=== PATIENT | female | born 1940 | race Caucasian/White ===

== ENCOUNTER 2019-03-10 10:22 | Day surgery (SDC) | payer MEDICARE ==
[2019-03-10] VITALS (9 sets, daily range): BP systolic 100–165; BP diastolic 61–86
[~2019-03-10] VITALS: Ht 157.5 cm; Wt 79.7 kg
[2019-03-10] MEDS ORDERED: normal saline 1,000 ML IV SCH (10:45)
[2019-03-10] MEDS ORDERED: diphenhydrAMINE 25mg capsule PO PRN (10:45)
[2019-03-10] MEDS ORDERED: NITR0.4T51 SL (10:46)
[2019-03-10] MEDS ORDERED: ARIP5TAB4 PO (10:46)
[2019-03-10] MEDS ORDERED: ASPI81TA52 PO (10:46)
[2019-03-10] MEDS ORDERED: ZOL50T PO (10:46)
[2019-03-10] MEDS ORDERED: LISI1TAB11 PO (10:46)
[2019-03-10 11:22] LABS: BASOPHILS # (AUTO) 0.1 X10'3 (0-0.2); BASOPHILS % (AUTO) 1.5 % (0-1); EOSINOPHILS # (AUTO) 0.1 X10'3 (0-0.9); EOSINOPHILS % (AUTO) 2.7 % (0-6); HEMATOCRIT 43.9 % (35.0-45.0); HEMOGLOBIN 14.8 g/dl (12.0-16.0); LYMPHOCYTES # (AUTO) 1.3 X10'3 (1.1-4.8); LYMPHOCYTES % (AUTO) 25.9 % (21-51); MEAN CORPUSCULAR HEMOGLOBIN 29.7 PG (27.0-31.0); MEAN CORPUSCULAR HGB CONC 33.7 g/dL (33.0-36.5); MEAN CORPUSCULAR VOLUME 88.2 FL (78-98); MONOCYTES # (AUTO) 0.4 X10'3 (0-0.9); MONOCYTES % (AUTO) 8.5 % (2-12); NEUTROPHILS % (AUTO) 61.4 % (42-75); PLATELET COUNT 243 X10'3 (140-440); RED BLOOD COUNT 4.98 X10'6 (4.20-5.60); RED CELL DISTRIBUTION WIDTH 13.9 % (11.5-14.5); WHITE BLOOD COUNT 4.9 X10'3 (4.5-11.0)
[2019-03-10 11:32] LABS: ALBUMIN 3.8 G/DL (3.4-5.0); ANION GAP 7 (8-16); BLOOD UREA NITROGEN 18 MG/DL (7-18); BUN/CREATININE RATIO 21.4 (6.6-38.0); CALCIUM 9.1 MG/DL (8.5-10.1); CHLORIDE 107 MMOL/L (99-107); CREATININE 0.84 MG/DL (0.40-0.90); GLUCOSE 81 MG/DL (70-104); MAGNESIUM 2.1 MG/DL (1.5-2.4); POTASSIUM 4.1 MMOL/L (3.5-5.1); SODIUM 141 MMOL/L (135-145); TOTAL CARBON DIOXIDE 27.2 MMOL/L (24-32); eGFR 65 ML/MIN
[2019-03-10] MEDS ORDERED: fentaNYL/PF 50MCG/1 ML 2ML syringe ONE (12:42)
[2019-03-10] MEDS ORDERED: midazolam 2 mg/2 ml injection ONE ×2 (12:42→13:08)
[2019-03-10] MEDS ORDERED: LIDOcaine 1% (10mg/ml)w/preservative injection 20ml MDV ONE (12:42)
[2019-03-10] MEDS ORDERED: iohexol 350 MG/ML 50ML vial IV ONE (12:43)
[2019-03-10] MEDS ORDERED: iohexol 350MG/ML 100ml bottle IV ONE ×3 (12:43→13:38)
[2019-03-10] MEDS ORDERED: heparin 1,000unit/ml 10ml vial 10 ML ONE (13:25)
[2019-03-10] MEDS ORDERED: nitroGLYCERIN-Tridil 50MG/D5W 250 ML IV ONE (13:33)
[2019-03-10] MEDS ORDERED: clopidogrel 300mg tablet ONE (13:50)
[2019-03-10] MEDS ORDERED: normal saline 1000ml 1,000 ML IV SCH (14:45)
[2019-03-10] MEDS ORDERED: ketorolac tromethamine 15mg/ml inj. IV ONE (15:15)
[2019-03-10] MEDS ORDERED: morphine 4 MG/ML inj SYRINge IV ONE (15:15)
== END 2019-03-10 17:30 | disposition home or self-care (01) ==
LOC: SSTAY O 10:22
PROVIDERS: ATTEND Internal Medicine Cardiovascular Disease
DX: I25.119 Atherosclerotic heart disease of native coronary artery with unspecified angina pectoris (principal); I10 Essential (primary) hypertension; F32.9 Major depressive disorder, single episode, unspecified; M19.90 Unspecified osteoarthritis, unspecified site; Z90.49 Acquired absence of other specified parts of digestive tract; Z98.890 Other specified postprocedural states; Z96.612 Presence of left artificial shoulder joint; Z96.611 Presence of right artificial shoulder joint; Z98.42 Cataract extraction status, left eye; Z98.41 Cataract extraction status, right eye; Z87.891 Personal history of nicotine dependence; Z79.82 Long term (current) use of aspirin; Z79.899 Other long term (current) drug therapy
CPT/HCPCS: 36415; 80048; 83735; 85025; 85610; 93005; 93458; 99152; 99153; C1769; C1874; C1894; C9600; J1644; J1885; J2001; J2250; J2270; J3010; J7030; Q0163; Q9967; A4620; A6258; C1760; J3490